=== PATIENT | male | born 1985 | race Hispanic/Latino ===

== ENCOUNTER 2023-04-23 11:33 | Emergency (ER) | payer SELFPAY ==
--- NOTE | ~2023-04-23 | XR_ITS ---
XR humerus LT 04/23/2023 11:51 Indication: Left arm pain Procedure: 2 views left humerus Comparison: No prior studies for comparison. Findings: There is a displaced midshaft fracture of the left humerus with varus angulation. Left shou lder joint intact. No focal soft tissue abnormality. No foreign bodies. Impression: 1: Displaced midshaft fracture left humerus with varus angulation. Reviewed, dictated and finalized at location B. [employer] Impression: 1: Displaced midshaft fracture left humerus with varus angulation.
[2023-04-23 11:36] VITALS: BP 189/99; PULSE 115; RESP 18; TEMP 36.9; O2SAT 100
--- NOTE | 2023-04-23 13:58 | ED.UPPEXIN ---
HPI - Extremity Injury (Upper) General Chief Complaint: Extremity Injury, Upper Stated Complaint: LUE pain, fell on ice Time Seen by Provider: 04/23/23 12:29 History of Present Illness HPI narrative: Patient is a 38-year-old male presenting with left arm pain. Patient is Romansh speaking, inker and opaquer was used for the encounter. Patient was walking into work on the icy parking lot and slipped falling to his left arm. Since did not strike his head or lose consciousness. Had immediate severe pain in his left upper arm. No other injuries or concerns. Took some ibuprofen with moderate relief. Related Data Allergies Allergy/AdvReac Type Severity Reaction Status Date / Time No Known Allergies Allergy Verified 04/23/23 14:07 Review of Systems Review of Systems: All systems reviewed & are unremarkable except as noted in HPI and below Exam Narrative: GENERAL: Well-appearing, In no acute distress, pleasant cooperative HEAD: Normocephalic, atraumatic. EYES: PERRLA and EOMI. ENT: grossly unremarkable NECK: Supple. CHEST: No respiratory distress. HEART: Regular rate and rhythm ABDOMEN: Soft, nontender, nondistended EXTREMITIES: L arm in sling, tender to mid shaft, radial pulses 2+, distal ROM intact, no sensory deficits SKIN: Warm, dry, no rash. NEURO: No focal deficits. Alert and oriented x3. PSYCH: Normal mood and affect. Course Vital Signs Vital signs: Vital Signs Temperature 98.4 F 04/23/23 11:36 Pulse Rate 115 H 04/23/23 11:36 Respiratory Rate 18 04/23/23 11:36 Blood Pressure 189/99 H 04/23/23 11:36 Pulse Oximetry 100 04/23/23 11:36 Oxygen Delivery Room Air 04/23/23 11:36 Temperature 98.4 F 04/23/23 11:36 Pulse Rate 115 H 04/23/23 11:36 Respiratory Rate 18 04/23/23 11:36 Blood Pressure 189/99 H 04/23/23 11:36 Pulse Oximetry 100 04/23/23 11:36 Oxygen Delivery Room Air 04/23/23 11:36 MDM - Extremity Injury (Upper) MDM Narrative Medical decision making narrative: 38-year-old male presenting with left arm pain after a fall. Vitals stable. Exam remarkable for the above. X-ray reveals midshaft humeral fracture. He is neurovascularly intact. Patient placed in sling and swath and advised close orthopedic follow-up. Vicodin as needed for severe pain. Tylenol and ibuprofen around the clock. Appropriate return precautions given. Patient voices understanding and is agreeable to plan. All questions answered. Discharged in stable condition. Differential Diagnosis Differential diagnosis: Likely fracture of humerus Imaging Data Radiologist's impression: ITS Impressions Humerus X-Ray 04/23/23 11:54 Impression: 1: Displaced midshaft fracture left humerus with varus angulation. Critical Care Time Critical Care Time Critical Care Time: No Discharge Plan Discharge Clinical Impression: Humerus shaft fracture Patient Disposition: Home, Self-Care Condition: Stable Instructions: Antibiotic Form, Arm Fracture in Adults (DC), How to Use a Sling (ED) Additional Instructions: Te rompiste el h?kiara natalia, que es el hueso de la parte superior del brazo. Mantenga el inmovilizador puesto para mantener el hueso en gay lugar y sanar. Beau un seguimiento de cerca al n?kiara que aparece a continuaci?n para cirug?a ortop?dica. Use tylenol e ibuprofeno para controlar el dolor; puede usar el analg?sico recetado para el dolor intenso. Si gay dolor empeora repentinamente, desarrolla entumecimiento o debilidad, o si surgen otros s?ntomas preocupantes, regrese a la diann de emergencias. Seguimiento con atenci?n primaria para tr?mites de compensaci?n laboral. Si necesita un nuevo PCP, llame al n?kiara que aparece a continuaci?n. Shi Guerrero (primary care) - [phone] Patient Language: Romansh Prescriptions: New hydrocodone-acetaminophen 5-325 mg tablet 1 tablet PO Q6H PRN (Reason: pain) Qty: 20 0RF Follow-up/Referrals: Yoselin Gilliland
== END 2023-04-23 14:26 | disposition home or self-care (01) ==
PROVIDERS: Emergency Provider Emergency Medicine
DX: S42.392A Other fracture of shaft of left humerus, initial encounter for closed fracture (principal); W00.0XXA Fall on same level due to ice and snow, initial encounter
CPT/HCPCS: 73060; 99284; A4565